=== PATIENT | male | born 1995 | race Caucasian/White ===

== ENCOUNTER 2024-12-27 13:55 | Emergency (ER) | payer OTHER, SELFPAY ==
[2024-12-27 14:10] VITALS: BP 130/78; PULSE 56; RESP 16; TEMP 36.6; O2SAT 100
--- NOTE | 2024-12-27 14:15 | ED_ITS ---
HPI - Ear Problem General Chief complaint: Ear Stated complaint: LT Ear Pain Time Seen by Provider: 12/27/24 14:15 Source: patient Mode of arrival: ambulatory Limitations: no limitations History of Present Illness HPI Narrative: 29-year-old male presents with complaint of left ear pain for the past 2-3 days with ear pressure. Patient reports he had a your eye for about a week and a half, symptoms improving other than continues to have congestion and postnasal drainage. Not taking any [id number] medications to treat symptoms. Afebrile. All systems reviewed and negative except as noted above. Related Data Allergies Allergy/AdvReac Type Severity Reaction Status Date / Time No Known Allergies Allergy Verified 12/27/24 14:18 Review of Systems Review of Systems: CONSTITUTIONAL: Denies fever, chills, or sweats. EYES: Denies visual changes, redness, or discharge. ENT: Reports rhinorrhea, congestion, postnasal drainage. Denies sore throat. Reports left ear pain and pressure. CARDIOVASCULAR: Denies chest pain, palpitations, or edema. RESPIRATORY: Denies cough or dyspnea. GASTROINTESTINAL: Denies abdominal pain, nausea, vomiting, or diarrhea. GENITOURINARY: Denies dysuria or hematuria. SKIN: Denies rash or itching. MUSCULOSKELETAL: Denies back pain, joint pain, or myalgia. NEUROLOGIC: Denies headache, numbness, or weakness. PSYCHIATRIC: Denies anxiety or depression. All other systems reviewed are negative, except as documented in HPI. PMFSH Comments At time of signature, agree with nursing past medical, surgical, social and family history. There is no relevant family history pertinent to the presenting complaint. Exam Narrative: GENERAL: This is a well-nourished, well-developed patient, in no apparent distress. HEAD: normocephalic, atraumatic. EYES: PERRL. Sclera clear/white. Vision is grossly intact. EARS: External ears normal, auditory canals clear and without drainage, right TM normal. Clear fluid to left TM with bubbles, injected. No perforation bilaterally. Hearing grossly intact. NOSE: External nose normal with clear nasal drainage, mild erythema to bilateral nares THROAT: Mucous membranes moist, postnasal drainage without significant erythema, swelling or exudates NECK: Neck supple, non-tender without lymphadenopathy, masses or thyromegaly. CARDIOVASCULAR: Regular rate and rhythm without murmurs, gallops, or rubs. RESPIRATORY: Clear to auscultation. Breath sounds equal bilaterally. No wheezes, rales, or rhonchi. GASTROINTESTINAL: Abdomen soft, non-tender, nondistended. Bowel sounds are active. No hepato-splenomegaly, or palpable masses. No guarding. SKIN: warm, Dry, intact with no suspicious lesions or rash, good texture and turgor. NEURO: awake, alert, and oriented to person, place and time. There were no obvious focal neurologic abnormalities. EXTREMITIES: No joint tenderness, effusion, or edema noted. No calf tenderness. Negative Homans sign bilaterally. BACK: Nontender without deformity. No CVA tenderness. Course Course Level of Care: Express Care Visit Vital Signs Vital signs: Vital Signs Temperature 36.6 C 12/27/24 14:10 Pulse Rate 56 L 12/27/24 14:10 Respiratory Rate 16 12/27/24 14:10 Blood Pressure 130/78 12/27/24 14:10 Pulse Oximetry 100 12/27/24 14:10 Temperature 36.6 C 12/27/24 14:10 Pulse Rate 56 L 12/27/24 14:10 Respiratory Rate 16 12/27/24 14:10 Blood Pressure 130/78 12/27/24 14:10 Pulse Oximetry 100 12/27/24 14:10 Reviewed Medical Decision Making MDM Narrative Medical decision making narrative: Will treat left serous otitis media with antibiotic. Patient is well-appearing, nontoxic. Patient agrees with plan of care. Vital Signs Vital Signs: Vital Signs Temperature 36.6 C 12/27/24 14:10 Pulse Rate 56 L 12/27/24 14:10 Respiratory Rate 16 12/27/24 14:10 Blood Pressure 130/78 12/27/24 14:10 Pulse Oximetry 100 12/27/24 14:10 Temperature 36.6 C 12/27/24 14:10 Pulse Rate 56 L 12/27/24 14:10 Respiratory Rate 16 12/27/24 14:10 Blood Pressure 130/78 12/27/24 14:10 Pulse Oximetry 100 12/27/24 14:10 Discharge Plan Discharge Clinical Impression: Acute serous otitis media of left ear Patient Disposition: Home Condition: Stable Instructions: Antibiotic Form, Fluid In The Ear (Serous Otitis Media) (ED) Additional Instructions: Take medications as prescribed. Purchase an [id number] antihistamine and take it daily such as Claritin or Zyrtec. Take Tylenol or ibuprofen every 6-8 hours as needed for pain. Drink at least 64 oz of water a day. See your doctor if symptoms are not improving. Patient Language: Mohawk Prescriptions: New amoxicillin 875 mg tablet 875 mg PO Q12H 10 Days Qty: 20 0RF fluticasone propionate [Flonase Allergy Relief] 50 mcg/actuation spray,suspension 1 spray intranasal BID Qty: 16 0RF Rx Instructions: administer into each nostril Follow-up/Referrals: Jenna Frankel, PCT [Primary Care Provider] - Time of Disposition: 14:22
== END 2024-12-27 14:25 | disposition home or self-care (01) ==
PROVIDERS: Emergency Provider Nurse Practitioner Family
DX: H65.02 Acute serous otitis media, left ear (principal)
CPT/HCPCS: 99203; G0463